=== PATIENT | male | born 1995 | race Caucasian/White ===

== ENCOUNTER 2018-04-30 19:29 | Emergency (ER) | payer BC, SELFPAY ==
[2018-04-30 19:40] VITALS: BP 149/72; PULSE 108; RESP 18; TEMP 37.5; O2SAT 98
--- NOTE | 2018-04-30 20:06 | ED.URI ---
HPI - URI/Sore Throat <ARTI Tobin - Last Filed: 04/30/18 21:35> General Chief Complaint: Upper Respiratory Symptoms Stated Complaint: Coughing up blood Time Seen by Provider: 04/30/18 19:35 Source: patient Mode of arrival: ambulatory Limitations: no limitations History of Present Illness HPI Narrative: 22-year-old healthy male that is a everyday smoker here for complaint of having cough that has been productive over the last 3-4 days. He was seen by his primary care provider and was diagnosed with influenza and was given Tamiflu. He reports that he still having a good amount of coughing that has not improved. he also states that he has had a blood-tinged sputum earlier today. Positive p.o. intake. No nausea vomiting. He has had fever and chills as well. He states family members have had similar symptoms. He denies any other concerns or complaints at this time. MD Complaint: cough Related Data Home Medications Medication Instructions Recorded Confirmed clonazepam 0.5 mg PO PRN PRN #0 09/25/16 oxycodone 10 mg PO PRN PRN #0 06/16/17 Previous Rx's Medication Instructions Recorded ondansetron [Zofran ODT] 4 mg SUBLINGUAL Q6HP PRN #20 odt 06/16/17 benzonatate [Tessalon Perles] 100 mg PO TID PRN #15 cap 04/30/18 doxycycline hyclate 100 mg PO BID #13 cap 04/30/18 Allergies Allergy/AdvReac Type Severity Reaction Status Date / Time Penicillins [PENICILLINS] Allergy Unknown Verified 04/30/18 21:08 Review of Systems <ARTI Tobin - Last Filed: 04/30/18 21:35> Constitutional Reports chills, Reports fever(s), Denies lethargy and Denies weakness Eyes Denies change in vision, Denies eye discharge, Denies irritation and Denies loss of vision ENT Ears, Nose, Mouth, and Throat: Denies change in voice, Denies neck pain and Denies sore throat Cardiovascular Denies chest pain, Denies irregular heart rhythm, Denies lightheadedness, Denies palpitations and Denies orthopnea Respiratory Reports cough Gastrointestinal Gastrointestinal: Denies abdominal pain, Denies change in bowel habits, Denies diarrhea, Denies nausea and Denies vomiting Genitourinary Denies hematuria, Denies flank pain, Denies urinary incontinence and Denies urinary urgency Musculoskeletal Denies neck pain Neurologic Denies loss of vision and Denies weakness Endocrine Denies palpitations Exam <ATRI Tobin - Last Filed: 04/30/18 21:35> Initial Vital Signs Initial Vital Signs: Vital Signs Temperature 99.5 F 04/30/18 19:40 Pulse Rate 108 H 04/30/18 19:40 Respiratory Rate 18 04/30/18 19:40 Blood Pressure 149/72 H 04/30/18 19:40 Pulse Oximetry 98 04/30/18 19:40 Const General: cooperative and well developed Nutritional Appearance: well nourished Orientation: alert, awake, oriented x3 and not confused HENNV Mouth: oral mucosae normal, oropharynx normal and moist mucous membranes Resp Effort & Inspection: normal respiratory effort, able to speak in complete sentences, no respiratory distress and no use of accessory muscles Auscultation: no rales, no rhonchi and wheezes ( Slight inspiratory wheeze to right upper lobe) Cardio Rate: regular rate Rhythm: regular rhythm Heart Sounds: no click, no gallops, no murmurs and no rubs Pulses: normal peripheral pulses GI Inspection: non-distended Palpation: soft, no hepatosplenomegaly, No guarding, No pulsatile mass and No tender Auscultation: normal bowel sounds Skin General: no rashes or lesions noted, No jaundice and No petechiae <Marifer Winkler DO - Last Filed: 04/30/18 22:24> Initial Vital Signs Initial Vital Signs: Vital Signs Temperature 99.5 F 04/30/18 19:40 Pulse Rate 108 H 04/30/18 19:40 Respiratory Rate 18 04/30/18 19:40 Blood Pressure 149/72 H 04/30/18 19:40 Pulse Oximetry 98 04/30/18 19:40 Course <ARTI Tobin - Last Filed: 04/30/18 21:35> Orders Ordered: ED Orders 04/30/18 19:30 FLU A and B [Influenza A and B by PCR Rapid] Stat 04/30/18 20:05 XR chest 2V Stat Discontinued Medications Albuterol (Ventolin Hfa Prepack) 1 box MISC SEEINSTR ONE Stop: 04/30/18 21:02 Last Admin: 04/30/18 21:07 Dose: 1 box Doxycycline Hyclate (Vibramycin) 100 mg PO NOW ONE Stop: 04/30/18 21:01 Last Admin: 04/30/18 21:07 Dose: 100 mg Vital Signs - 8 hr 04/30/18 19:40 04/30/18 21:23 Temperature 99.5 F 98.1 F Pulse Rate 108 H 87 Respiratory Rate 18 Blood Pressure 149/72 H 131/70 Pulse Oximetry 98 98 <Marifer Winkler DO - Last Filed: 04/30/18 22:24> Orders Ordered: ED Orders 04/30/18 19:30 FLU A and B [Influenza A and B by PCR Rapid] Stat 04/30/18 20:05 XR chest 2V Stat Discontinued Medications Albuterol (Ventolin Hfa Prepack) 1 box MISC SEEINSTR ONE Stop: 04/30/18 21:02 Last Admin: 04/30/18 21:07 Dose: 1 box Doxycycline Hyclate (Vibramycin) 100 mg PO NOW ONE Stop: 04/30/18 21:01 Last Admin: 04/30/18 21:07 Dose: 100 mg Vital Signs - 8 hr 04/30/18 19:40 04/30/18 21:23 Temperature 99.5 F 98.1 F Pulse Rate 108 H 87 Respiratory Rate 18 Blood Pressure 149/72 H 131/70 Pulse Oximetry 98 98 MDM - URI/Sore Throat <ARTI Tobin - Last Filed: 04/30/18 21:35> Lab Data Lab Results 04/30/18 Range/Units 19:30 Influenza A & B (PCR) Negative (Negative) Imaging Data Chest x-ray: Radiologist's impression: [address] [address] XRay Report Signed Patient: Jai Barnes JMR#: [id number] : 1995Acct:[id number] Age/Sex: 22 / MDate of Service: 04/30/18 Loc: ED Accession Number: [id number] Procedure: XR chest 2V Ordering Provider: Mick Nevarez PROCEDURE: XR CHEST 2V INDICATIONS: productive cough with blood tinged phlegm TECHNIQUE: 2 views of the chest were acquired. COMPARISON: None. FINDINGS: Surgical changes and devices: None. Lungs and pleura: Right lower lobe infiltrate consistent with pneumonia. No pleural effusions or pneumothorax. Mediastinum: Mediastinal contours are normal. Heart size is normal. Bones and chest wall: No suspicious bony abnormalities. Soft tissues appear unremarkable. IMPRESSION: Right lower lobe pneumonia. Dictated by: Nafisa Tyler M.D. on 04/30/2018 at 20:39 Approved by: Nafisa Tyler M.D. on 04/30/2018 at 20:40 [facility] Narrative Medical decision making narrative: influenza swab was obtained and was negative. Chest x-ray shows right lower lobe pneumonia. He is placed on doxycycline. Doxycycline 1st dose was given in the emergency room. He has prescription for subsequent dosing. He is also prescribed a a abuse oral inhaler and spacer to help open up her airways. Plenty of fluids. Jsop-fxg-ozfysfa Tylenol or Motrin as needed for any discomfort or fever. Tessalon Perles as prescribed to help with cough. Follow up with primary care provider next few days. For any worsening symptoms return to the emergency room. <Marifer Winkler, - Last Filed: 04/30/18 22:24> Lab Data Lab Results 04/30/18 Range/Units 19:30 Influenza A & B (PCR) Negative (Negative) Discharge Plan Departure Patient Disposition: Home Clinical Impression: Community acquired pneumonia Discharge Date/Time: 04/30/18 21:24 Interventions: ED Discharge Assessment Last Done: 04/30/18 21:23 Instructions: DI for Pneumonia -- Adult Activity Restrictions/Additional Instructions: influenza swab was obtained and was negative. Chest x-ray shows right lower lobe pneumonia. UR placed on antibiotic called doxycycline use as directed. Doxycycline 1st dose was given in the emergency room. prescription for subsequent dosing is provided fill 1st thing in the morning. you are also prescribed a a albuterol inhaler and spacer to help open up airways. Plenty of fluids. Dwge-rkm-iczkebg Tylenol or Motrin as needed for any discomfort or fever. Tessalon Perles as prescribed to help with cough. Follow up with primary care provider next few days. For any worsening symptoms return to the emergency room. Prescriptions: New doxycycline hyclate 100 mg capsule 100 mg PO BID Qty: 13 RF: 0 benzonatate [Tessalon Perles] 100 mg capsule 100 mg PO TID PRN (Reason: cough) Qty: 15 RF: 0 No Action clonazepam 0.5 MG tablet 0.5 mg PO PRN PRNQty: 0 RF: 0 oxycodone 10 MG tablet 10 mg PO PRN PRNQty: 0 RF: 0 ondansetron [Zofran ODT] 4 MG tablet,disintegrating 4 mg Sublingual Q6HP PRNQty: 20 RF: 0 Referrals: Jorje Guevara MD [Primary Care Provider] - Stand Alone Forms: Work/School Restrictions <Marifer Winkler DO - Last Filed: 04/30/18 22:24> Cosign ED Attending Nazature Attestation: I was immediately available in the department for consultation. Documentation has been reviewed. I agree with assessment and plan.
[2018-04-30 20:25] LABS: Influenza A and B by PCR Rapid Negative (Negative)
[2018-04-30] MEDS: ALBUTEROL HFA PREPACK 1 BOX MISC (21:07)
[2018-04-30] MEDS: DOXYCYCLINE HYCLATE 100 MG TABLET PO (21:07)
[2018-04-30 21:23] VITALS: BP 131/70; PULSE 87; TEMP 36.7; O2SAT 98
== END 2018-04-30 21:24 | disposition home or self-care (01) ==
PROVIDERS: Emergency Medicine; Emergency Provider Nurse Practitioner Family; Family Provider Family Medicine; PCP Family Medicine
DX: J18.9 Pneumonia, unspecified organism (principal)
CPT/HCPCS: 71046; 87400; 99282; 99284

== ENCOUNTER → 2019-01-22 14:46 | Outpatient (CLI) | payer BC, SELFPAY ==
[2019-01-22 14:56] LABS: Add Manual Diff / Slide Review NO; Basophils Absolute Auto 100 /uL (0-100); Basophils Percent Auto 0.9 % (0-2); Eosinophils Absolute Auto 100 /uL (0-450); Hematocrit 46.4 % (41-53); Hemoglobin 16.8 g/dL (13.5-17.5); Lymphocytes Absolute Auto 1900 /uL (1100-4500); Lymphocytes Percent Auto 27.1 % (25-40); Mean Corpuscular HGB Conc 36.2 % (30-36); Mean Corpuscular Volume 83.1 fL (80-100); Monocytes Absolute Auto 800 /uL (0-900); Monocytes Percent Auto 11.5 % (3-14); Neutrophils Absolute Auto 4200 /uL (1500-7000); Neutrophils Percent Auto 59.5 % (50-75); Platelet Count 231 X10^3/uL (150-400); Red Blood Cell Count 5.58 X10^6/uL (4.5-5.9); Red Cell Distribution Width 12.1 % (11.6-14.8)
== END ==
PROVIDERS: PCP Family Medicine; Visit Provider Physician Assistant
DX: K62.5 Hemorrhage of anus and rectum (principal)
CPT/HCPCS: 36415; 85025

== ENCOUNTER 2019-02-25 07:17 | Emergency (ER) | payer BC, SELFPAY ==
--- NOTE | 2019-02-25 07:18 | DI.RAD.S_ITS ---
PROCEDURE: XR CHEST 2V INDICATIONS: eval for PNA TECHNIQUE: 2 views of the chest were acquired. COMPARISON: [facility], CR, XR CHEST 2V, 04/30/2018, 20:17. FINDINGS: Surgical changes and devices: None. Lungs and pleura: Lungs are clear. No pleural effusions or pneumothorax. Mediastinum: Mediastinal contours are normal. Heart size is normal. Bones and chest wall: No suspicious bony abnormalities. Soft tissues appear unremarkable. IMPRESSION: No acute cardiopulmonary disease. Dictated by: Nafisa Tyler M.D. on 02/25/2019 at 8:39 Approved by: Nafisa Tyler M.D. on 02/25/2019 at 8:40
[2019-02-25 07:23] VITALS: BP 137/69; PULSE 71; RESP 16; TEMP 36.8; O2SAT 98; BMI 27.8
--- NOTE | 2019-02-25 07:24 | ED_ITS ---
HPI - URI/Sore Throat General Chief Complaint: Upper Respiratory Symptoms Stated Complaint: pneumonia again Time Seen by Provider: 02/25/19 07:18 Source: patient Mode of arrival: Ambulatory Limitations: no limitations History of Present Illness HPI Narrative: 5 days of sinus congestion with a dry cough and sore throat. He states that he feels like there is water on his lungs. no fevers. had PNA this time last year and is concerned about it again. Related Data Previous Rx's Medication Instructions Recorded albuterol sulfate 2 puff INHALATION Q4-6H PRN #18 02/25/19 gram benzonatate [Tessalon Perles] 100 mg PO TID PRN #14 cap 02/25/19 Allergies Allergy/AdvReac Type Severity Reaction Status Date / Time Penicillins [PENICILLINS] Allergy Severe GI Upset Verified 02/25/19 07:23 Review of Systems Constitutional Constitutional: Denies fever(s) Cardiovascular Cardiovascular: Denies chest pain and Reports dyspnea Respiratory Respiratory: Reports chest congestion, Reports cough and Reports dyspnea Gastrointestinal Gastrointestinal: Denies abdominal pain, Denies nausea and Denies vomiting Genitourinary Genitourinary: Denies dysuria Musculoskeletal Musculoskeletal: Denies myalgias and Denies arthralgias Integumentary/Breasts Skin/Breast: Denies lesions and Denies rash Neurologic Neurologic: Denies behavioral changes and Denies confusion Psychiatric Psychiatric: Denies behavioral changes and Denies confusion Hematologic/Lymphatic Hematologic/Lymphatic: Denies easy bleeding and Denies easy bruising [facility] Medical History Anxiety (Inactive) Social History Smoking Status: Current every day smoker Social History Smoking Status: Current every day smoker Exam Initial Vital Signs Initial Vital Signs: Vital Signs Temperature 98.2 F 02/25/19 07:23 Pulse Rate 71 02/25/19 07:23 Respiratory Rate 16 02/25/19 07:23 Blood Pressure 137/69 02/25/19 07:23 Pulse Oximetry 98 02/25/19 07:23 Const General: cooperative, comfortable and well developed Orientation: alert, awake and oriented x3 HENMT Head: normal to inspection and normocephalic Nose: external nose normal Teeth and gingiva: dentition normal Throat: posterior oropharynx normal Chest Chest: normal inspection of the chest Resp Effort & Inspection: normal respiratory effort Auscultation: clear to auscultation bilaterally Cardio Rate: regular rate Rhythm: regular rhythm GI Inspection: non-distended Palpation: soft and No firm Skin Lesions: no lesions Rashes: no rashes Neuro General: alert and awake Cognition: normal cognition Speech: speech normal Extrem General: normal to inspection and capillary refill normal Psych Appearance: grossly normal and well kempt Course Orders Ordered: ED Orders 02/25/19 07:18 XR chest 2V Stat Vital Signs Vital signs: Vital Signs - 8 hr 02/25/19 07:23 02/25/19 08:08 Temperature 98.2 F Pulse Rate 71 75 Respiratory Rate 16 16 Blood Pressure 137/69 Blood Pressure [Right Arm] 114/67 Pulse Oximetry 98 98 [facility] - URI/Sore Throat Imaging Data Chest x-ray: Radiologist's impression: [address] [address] XRay Report Signed Patient: Jai Barnes JMR#: [id number] : 1995Acct:[id number] Age/Sex: 23 / MDate of Service: 02/25/19 Loc: ED Accession Number: [id number] Procedure: XR chest 2V Ordering Provider: Aravind Dodson D.O. PROCEDURE: XR CHEST 2V INDICATIONS: eval for PNA TECHNIQUE: 2 views of the chest were acquired. COMPARISON: [facility], XR CHEST 2V, 04/30/2018, 20:17. FINDINGS: Surgical changes and devices: None. Lungs and pleura: Lungs are clear. No pleural effusions or pneumothorax. Mediastinum: Mediastinal contours are normal. Heart size is normal. Bones and chest wall: No suspicious bony abnormalities. Soft tissues appear unremarkable. IMPRESSION: No acute cardiopulmonary disease. Dictated by: Nafisa Tyler M.D. on 02/25/2019 at 8:39 Approved by: Nafisa Tyler M.D. on 02/25/2019 at 8:40 [facility] Narrative Medical decision making narrative: Well-appearing, no respiratory distress, no signs of pneumonia on the x-ray, suspect upper respiratory infection will treat symptomatically. No indication for antibiotics. Patient was given return precautions and follow-up instructions. He expressed understanding and agreement with plan. Discharge Plan Departure Patient Disposition: Home Clinical Impression: Cough Upper respiratory infection Qualifiers: URI type: unspecified URI Qualified Code(s): J06.9 - Acute upper respiratory infection, unspecified Instructions: DI for Cough -- Adult, DI for Viral Upper Respiratory Infection -- Adult Activity Restrictions/Additional Instructions: Recommend that you take an ndsl-pol-asrrsuo decongestant such as Claritin or Chikis or Zyrtec or the generic version of 1 of these medications. Using other medications as directed. Contact your primary provider for follow-up. Return to the emergency department for any new or worsening symptoms Prescriptions: New albuterol sulfate 90 mcg/actuation HFA aerosol inhaler 2 puff INHALATION Q4-6H PRN (Reason: shortness of breath or wheezing) Qty: 18 RF: 0 benzonatate [Tessalon Perles] 100 mg capsule 100 mg PO TID PRN (Reason: cough) Qty: 14 RF: 0 Referrals: Jorje Guevara MD [Primary Care Provider] -
[2019-02-25 08:08] VITALS: BP 114/67; PULSE 75; RESP 16; O2SAT 98
--- NOTE | 2019-02-25 08:30 | PC.NURSE ---
pt c/o wet lungs and sore throat. pt states about a year ago he had pneumonia and let it go to long without treatment and was out of work for 3 weeks, concerned and does not want that to happen again.
[2019-02-25 09:08] VITALS: BP 121/65; PULSE 70; RESP 16; O2SAT 100
== END 2019-02-25 09:09 | disposition home or self-care (01) ==
PROVIDERS: Emergency Provider Emergency Medicine; PCP Family Medicine
DX: R05 Cough (principal); J06.9 Acute upper respiratory infection, unspecified
CPT/HCPCS: 71046; 99282; 99283

== ENCOUNTER 2019-03-05 17:50 | Emergency (ER) | payer OTHER, BC, SELFPAY ==
[2019-03-05 17:56] VITALS: BP 151/80; PULSE 82; RESP 16; TEMP 37.1; O2SAT 99
[2019-03-05 19:13] VITALS: BP 127/73; PULSE 69; RESP 18; O2SAT 97
[2019-03-05 20:06] VITALS: BP 124/62; PULSE 65; O2SAT 95
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
== END 2019-03-05 20:07 | disposition home or self-care (01) ==
PROVIDERS: Emergency Provider Nurse Practitioner Family; PCP Family Medicine
DX: S16.1XXA Strain of muscle, fascia and tendon at neck level, initial encounter (principal); V53.5XXA Driver of pick-up truck or van injured in collision with car, pick-up truck or van in traffic accident, initial encounter
CPT/HCPCS: 99282